=== PATIENT | male | born 1985 | race Caucasian/White ===

== ENCOUNTER 2020-07-19 11:38 | Emergency (ER) | payer OTHER ==
[~2020-07-19] VITALS: Ht 170.2 cm; Wt 101.6 kg
[2020-07-19 11:45] VITALS: BP 141/84
[2020-07-19] MEDS ORDERED: KETOROLAC 60 MG/2 ML VIAL IM ONE (11:55)
--- NOTE | 2020-07-19 12:01 | NUR ---
35 y/o A&OX4 male c/o left rib pain 03/19 sharp intermittent worse with exertion and deep breathing. Pt states he was injured on Sunday, took ibuprofen and had minimal relief, now has worsened. Denies N/V, fever/chills. Denies PMH, RX. NKA
--- NOTE | 2020-07-19 12:11 | NUR ---
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
--- NOTE | 2020-07-19 12:23 | NUR ---
Pt brought back from XR by [email or web address].
[2020-07-19 13:57] VITALS: BP 141/84
--- NOTE | 2020-07-19 13:57 | NUR ---
Patient discharged with v/s stable. Written and verbal after care instructions given and explained. Patient alert, oriented and verbalized understanding of instructions. Ambulatory with steady gait. All questions addressed prior to discharge. ID band removed. Patient advised to follow up with PMD. Rx of Motrin and [place] given. Patient educated on indication of medication including possible reaction and side effects. Opportunity to ask questions provided and answered.
== END 2020-07-19 13:57 | disposition home or self-care (01) ==
LOC: MED 11:38
DX: S20.20XA Contusion of thorax, unspecified, initial encounter (principal); F17.200 Nicotine dependence, unspecified, uncomplicated; W19.XXXA Unspecified fall, initial encounter; Y93.89 Activity, other specified; Y92.89 Other specified places as the place of occurrence of the external cause; Y99.8 Other external cause status
CPT/HCPCS: 71101; 96372; 99283; J1885

== ENCOUNTER 2020-12-06 14:00 | Emergency (ER) | payer OTHER ==
[~2020-12-06] VITALS: Ht 170.2 cm; Wt 102.1 kg
[2020-12-06 14:05] VITALS: BP 133/95
--- NOTE | 2020-12-06 14:06 | NUR ---
Patient ambulated to bed 7 with steady/even gait.
--- NOTE | 2020-12-06 14:30 | NUR ---
35 y/o M coming in from home with c/c right-sided rib pain. Pt states at 0700 this morning, he was at work and lifted up a manhole cover in a pressing motion when he heard a "pop" to his right rib cage. Patient states he was seen here in September for the same injury and they were unable to diagnose due to the swelling. Patient states pain 7/10, sharp/constant, radiating to his left side upon coughing. Patient states turning on right side worsens the pain. Patient denies nausea, vomiting, diarrhea, dizziness, headache, abdominal pain, chest pain, SOB, fever/chills. Denies taking any medication prior to arrival; states he tried to take a nap for pain with no relief. 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 PMH/Meds/Allergies/Sx: Denies
--- NOTE | 2020-12-06 15:52 | NUR ---
Dr. Hawkins is evaluating patient at bedside.
[2020-12-06] MEDS ORDERED: KETOROLAC 60 MG/2 ML VIAL IM ONE (16:00)
[2020-12-06] MEDS ORDERED: IBUP-2213 PO (16:00)
[2020-12-06 16:20] VITALS: BP 133/95
--- NOTE | 2020-12-06 16:20 | NUR ---
Patient discharged with v/s stable. Written and verbal after care instructions given and explained. Patient alert, oriented and verbalized understanding of instructions. Ambulatory with steady gait. All questions addressed prior to discharge. ID band removed. Patient advised to follow up with PMD. Rx of IBUPROFEN 600MG TID PO PRN PAIN given. Patient educated on indication of medication including possible reaction and side effects. Opportunity to ask questions provided and answered.
== END 2020-12-06 16:20 | disposition home or self-care (01) ==
LOC: MED 14:00
DX: S20.20XA Contusion of thorax, unspecified, initial encounter (principal); F17.200 Nicotine dependence, unspecified, uncomplicated; X50.9XXA Other and unspecified overexertion or strenuous movements or postures, initial encounter; Y93.89 Activity, other specified; Y92.89 Other specified places as the place of occurrence of the external cause; Y99.8 Other external cause status
CPT/HCPCS: 71101; 96372; 99283; J1885